=== PATIENT | female | born 2000 | race African-American/Black ===

== ENCOUNTER 2023-05-08 21:16 | Emergency (ER) | payer SELFPAY | END 2023-05-08 22:10 | disposition left against medical advice (07) | LOC: MW.ED 21:16 | DX: Z53.21 Procedure and treatment not carried out due to patient leaving prior to being seen by health care provider (principal) ==

== ENCOUNTER 2023-05-09 10:06 | Emergency (ER) | payer SELFPAY ==
[2023-05-09] MEDS ORDERED: Ibuprofen 600 MG Tab PO ONE (12:01)
[2023-05-09] MEDS ORDERED: Acetaminophen 500 MG Tab PO ONE (12:01)
== END 2023-05-09 12:52 | disposition home or self-care (01) ==
LOC: MW.ED 10:06
DX: S92.501A Displaced unspecified fracture of right lesser toe(s), initial encounter for closed fracture (principal); X50.1XXA Overexertion from prolonged static or awkward postures, initial encounter
CPT/HCPCS: 73620; 99283; A9270